=== PATIENT | male | born 1940 | race Two or more races ===

== ENCOUNTER 2023-05-16 11:35 | Outpatient (CLI) | payer OTHER | END 2023-05-16 11:37 | disposition home or self-care (01) | LOC: LAB 11:35 | PROVIDERS: ATTEND Radiology Diagnostic Radiology | DX: R10.13 Epigastric pain (principal) ==

== ENCOUNTER 2023-05-17 07:27 | Outpatient (CLI) | payer OTHER | END 2023-05-17 07:35 | disposition home or self-care (01) | LOC: TOM 07:27 | PROVIDERS: ATTEND Internal Medicine | DX: R10.13 Epigastric pain (principal); K63.4 Enteroptosis | CPT/HCPCS: 74178; Q9965 ==